=== PATIENT | male | born 1960 | race Caucasian/White ===

== ENCOUNTER 2019-02-16 09:51 | Day surgery (SDC) | payer OTHER ==
[~2019-02-16] VITALS: Ht 177.8 cm; Wt 95.2 kg
[~2019-02-16 09:51] MED LIST: ADVIL200 MG PO; ALLER-TEC10 MG PO; ASCOMP WITH CO1 EACH PO; LEVOTHYROXINE125 MCG PO
--- NOTE | 2019-02-16 11:04 | NUR ---
02/16/19 1104 Sheets,Genie 1100 PT ARRIVED TO PACU ON 3L VIA MASK. VSS AND PT DENIES NAUSEA AND PAIN. COLIN OF CARE DISCUSSED AND PT BACK TO SLEEP, RESP EVEN AND UNLABORED. O2 REMOVED.
--- NOTE | 2019-02-16 15:07 | NUR ---
PT HAS PREVIOUS SCOPES, SEEMED RELAXED. JUAN IN SUPPORT. GAVE ENCOURAGEMENT AND WILL FOLLOW NEEDED
--- NOTE | 2019-02-16 17:19 | OR ---
[facility] [address] [place], [place] [address] Signed DATE OF OPERATION: 02/16/2019 SURGEON: Dee Singh MD PREOPERATIVE DIAGNOSIS: Colon screening. POSTOPERATIVE DIAGNOSIS: Scattered diverticula. PROCEDURE: Total colonoscopy to cecum. ANESTHESIA: Intravenous sedation, fentanyl 100 mcg, Versed 6 mg. INDICATION: This 58-year-old white man is a patient of Eugenio Lanza and underwent colonoscopy 10 years ago, which was normal. He is asymptomatic and has no family history of colon cancer. He is admitted to undergo screening colonoscopy. He understands the risks of bleeding, infection, perforation. FINDINGS: The prep was excellent. Complete colonoscopy was undertaken to the cecum without question. He had no sign of polyps, but did have scattered diverticula throughout the colon. DESCRIPTION OF PROCEDURE: The patient was brought to the endoscopy suite and placed in lateral decubitus position, given intravenous sedation to the point of slurred speech and nystagmus. Digital rectal examination was normal. An Olympus video colonoscope was passed in the rectum and manipulated throughout the colon noting several small diverticula throughout the way. Ultimately, the cecum was fully intubated. The ileocecal valve and appendiceal orifice were normal. The scope was withdrawn from that point and examination was undertaken showing no sign of polyps or colitis, only scattered diverticula. Retroflexed view of the rectum was normal except for some internal hemorrhoidal change. The scope was removed. The patient was taken to recovery room in good condition. Electronically Signed By: DEE SINGH MD 02/16/19 1719 PATIENT NAME: MAKAYLA TRINH OPERATIVE REPORT DATE OF : 58 REPORT #: [id number] PHYSICIAN: DEE SINGH MD PCP: EUGENIO LANZA REPORT IS CONFIDENTIAL AND NOT TO BE RELEASED WITHOUT AUTHORIZATION [address] [place], [place] [address] Signed CONCLUDING DIAGNOSIS: Diverticula, minimal. PLAN: Recommend repeat colonoscopy in 10 years sooner if clinically indicated. Recommend high-fiber diet as well. MD STEVE Murillo/KAMILA /[id number] cc: DIXON Saab Copies: EUGENIO LANZA ~ Electronically Signed By: DEE SINGH MD 02/16/19 1719 PATIENT NAME: MAKAYLA TRINH OPERATIVE REPORT DATE OF : 58 REPORT #: [id number] PHYSICIAN: DEE SINGH MD PCP: EUGENIO LANZA REPORT IS CONFIDENTIAL AND NOT TO BE RELEASED WITHOUT AUTHORIZATION
== END 2019-02-16 11:30 | disposition home or self-care (01) ==
LOC: OPS 09:51 → DS 11:00 → OPS 11:30
PROVIDERS: Surgery
PROC: 0DJD8ZZ Inspection of Lower Intestinal Tract, Via Natural or Artificial Opening Endoscopic (ICD-10-PCS; principal; 2019-02-16 11:00)
DX: Z12.11 Encounter for screening for malignant neoplasm of colon (principal); K57.30 Diverticulosis of large intestine without perforation or abscess without bleeding; K64.8 Other hemorrhoids; E89.0 Postprocedural hypothyroidism; E66.9 Obesity, unspecified; Z88.5 Allergy status to narcotic agent; Z98.890 Other specified postprocedural states; Z85.850 Personal history of malignant neoplasm of thyroid; Z68.31 Body mass index [BMI] 31.0-31.9, adult
CPT/HCPCS: 99153; G0500; J2250; J3010; J7120

== ENCOUNTER 2024-08-28 07:20 | Day surgery (SDC) | payer OTHER ==
[2024-08-23 10:07] VITALS: BP 135/96
[~2024-08-28] VITALS: Ht 177.8 cm; Wt 106.8 kg
[~2024-08-28 07:20] MED LIST changes: +CEFAZOLIN SODIUM 2 GM/20 ML SYR IV SCH; +DEXAMETHASONE SOD PHOS 4 MG/ML VIAL ONE; +FAMOTIDINE 20 MG/ 2 ML VIAL ONE; +HEParin SOD (PORCINE) 5,000 UNIT/ML SDV SUB-Q SCH; +IBLOOD GLUCOSE TEST STRIP 1 EA TEST VI PRN; +KETOROLAC TROMETHAMINE 30 MG/ML VIAL ONE; +LACTATED RINGER'S 1,000 ML IV ONE; +LACTATED RINGER'S 1,000 ML IV SCH; -LEVOTHYROXINE125 MCG PO; +LIDOCAINE HCL 1% 5 ML SDV INJ ONE; +LIDOCAINE HCL 4% 5 ML AMP ONE; +METOCLOPRAMIDE HCL 10 MG/2 ML SDV IV PRN; +METOCLOPRAMIDE HCL 10 MG/2 ML SDV ONE; +MIDAZOLAM HCL 2 MG/2 ML VIAL ONE; +MORPHINE SULFATE 10 MG/ML VIAL IV PRN; +NALOXONE HCL 0.4 MG SYR IV PRN; +PROCHLORPERAZINE EDISYLATE 10 MG/2 ML VIAL IV PRN; +ROCURONIUM BROMIDE 50 MG/5 ML SYR ONE; +SUCCINYLCHOLINE IN 0.9% NACL 200 MG/10 ML SYRINGE ONE; +SUGAMMADEX SODIUM 200 MG/2 ML ML ONE; +SYNTHROID150 MCG PO; +VERELAN PM100 MG PO; +droPERidol 5 MG/2 ML VIAL IV PRN; +fentaNYL citrate 100 MCG/2 ML VIAL ONE; +fentaNYL citrate 50 MCG/ML SDV IV PRN; +ondansetron HCL 4 MG/2 ML VIAL IV PRN; +ondansetron HCL 4 MG/2 ML VIAL ONE; +propofoL 200 MG/20 ML VIAL ONE
[2024-08-28 07:36] VITALS: BP 136/92
[2024-08-28] MEDS ORDERED: LABETALOL HCL 20 MG/4 ML VIAL ONE (10:36)
[2024-08-28] MEDS ORDERED: IBUPROFEN600 MG PO (10:50)
[2024-08-28] MEDS ORDERED: OXYCODON-ACETA1 EAC2 PO (10:51)
[2024-08-28] MEDS ORDERED: ACETAMINOPHEN500 MG PO (10:51)
--- NOTE | 2024-08-28 10:54 | NUR ---
08/28/24 1054 Reyna Gifford 1030 PT ARRIVED IN PACU NON RESPONSIVE TO NOXIOUS STIMULI WITH OPA IN PLACE. CHIN LIFT HELD BY PATROLLER ON ARRIVAL. 1031 PT REACTIVE. OPA REMOVED. 1035 BP ELEVATED. ANESTHESIA AWARE. 1036 LABETOLOL 10MG GIVEN IV BY PATROLLER. 1040 BP DECREASED TO 137/83. 1054 DR AT BEDSIDE. ALL QUESTIONS ANSWERED.
[2024-08-28] MEDS ORDERED: NALOXONE HCL 0.4 MG SYR IV PRN (11:00)
[2024-08-28] MEDS ORDERED: LACTATED RINGER'S 1,000 ML IV SCH (11:00)
[2024-08-28] MEDS ORDERED: ACETAMINOPHEN 500 MG TAB PO PRN (11:00)
[2024-08-28] MEDS ORDERED: OXYCODONE/APAP 7.5/325 TAB PO PRN (11:00)
[2024-08-28] MEDS ORDERED: IBUPROFEN 600 MG TAB PO PRN (11:00)
[2024-08-28 11:07] VITALS: BP 141/91
--- NOTE | 2024-08-28 11:19 | NUR ---
1105 PT ARRIVED TO DAY SURGERY RM TX FROM PACU VIA STREACHER. PT AWAKE AND ORIENTED. PT HAS WATER AND IS SIPPING ON ICE WATER. PT REPORTS TOLERABLE 2/10 PAIN, AND NO NAUSEA. VITALS TAKEN AND IV ASSESSED. PT IN ROOM. PT TAKING PRESCRIPTION TO PHARMACY WITH PT CONSENT TO DO SO. PT SITTING UPRIGHT IN BED SIPPING ON WATER AND EATING JELLO. PT HAS CALL LIGHT WITHIN REACH.
[2024-08-28 12:10] VITALS: BP 135/90
--- NOTE | 2024-08-28 12:19 | NUR ---
1210 HOURLY ROUNDING DONE WITH PT. PT REPORTS FLUCTUATING 3-5/10 PAIN. PT REQUESTING PAIN MEDICATION BEFORE GETTING UP TO USE THE BATHROOM SOON. PAIN MEDICINE GIVEN PER EMAR. PT REPORTS NO NAUSEA AT THIS TIME. VITALS TAKEN. IV ASSESSED. PT IN ROOM. REFILLED PT WATER CUP WITH WATER AND ICE. PT HAS FINISHED JELLO SNACK. BED LOW AND LOCKED, CALL LIGHT WITHIN REACH. PT REPORTS NO URGE TO URINATE YET, PT STATES HE WILL USE CALL LIGHT WHEN HE FEELS THE URGE TO URINATE.
--- NOTE | 2024-08-28 12:50 | NUR ---
1230 PT USED CALL LIGHT TO ALERT RN THAT PT NEEDS TO URINATE. PT ABLE TO AMBULATE TO BATHROOM WITH STEADY GAIT. PT URINATED 300 MLS OF CLEAR YELLOW URINE. PT AMBULATED BACK TO BED. 1245 IV REMOVED FOR PT TO GET DRESSED. PT GETTING DRESSED WITH 'S ASSISTANCE. CALL LIGHT WITHIN REACH.
--- NOTE | 2024-08-28 13:17 | NUR ---
1255 DISCHARGE INFORMATION GONE OVER WITH PT AND . NO QUESTIONS AT THIS TIME. INSTRUCTED PT HOW TO STRIP AND CLEAN AND PUT LEANN DRAIN TO SUCTION. PT HAS NO QUESTIONS AT THIS TIME. PT HAS TOLERABLE 3/10 PAIN. PT REPORTS NO NAUSEA AT THIS TIME. 1302 PT DISCHARGED FROM DAY SURGERY VIA WHEELCHAIR TO THE FRONT OF THE HOSPITAL TO PT'S 'S CAR.
[2024-08-28] MEDS ORDERED: SEVOFLURANE 250 ML BTL INH ONE (15:03)
--- NOTE | 2024-08-28 17:24 | OR ---
[facility] [address] [place], [place] [address] Signed DATE OF OPERATION: 08/28/2024 SURGEON: Dee Singh MD PREOPERATIVE DIAGNOSES: 1. Recurrent umbilical incisional hernia. 2. Incisional hernia in epigastric area. POSTOPERATIVE DIAGNOSES: 1. Epigastric incisional hernia defect 4 cm. 2. Umbilical large lipoma. No evidence of fascial defect or hernia of any sort. PROCEDURES: 1. Repair of epigastric 4 cm incisional hernia with implantation of Prolene mesh in an underlay technique. 2. Excision of 8 cm lipomatous mass at the umbilicus with placement of drain. ANESTHESIA: General endotracheal; Dee Mackenzie CRNA and local 20 mL of 0.25% Marcaine with epinephrine. INDICATIONS FOR THE PROCEDURE: This 64-year-old white man is well known to me from the past. He is a patient of DIXON Saab. He underwent Hill posterior gastropexy by me in 2000. He remains free of reflux symptoms 24 years later. He did develop by incisional hernia with incarceration at the umbilicus in 2012, which required operation including implantation of Prolene mesh in an underlay technique. The patient has gained a fair amount of weight since that time and has noted this is a bulky mass at the umbilicus, which is suggestive of recurrent incisional umbilical hernia. He additionally has a hernia that is reducible in the epigastric area. He is admitted at this time to undergo repair of the hernia and other indicated procedures depending on findings. He understands the risk of bleeding, infection, recurrence and so forth. FINDINGS: At the umbilicus, there was no hernia whatsoever. The previous repair was well intact. Instead, there was a lipomatous mass measuring 8 cm in maximum dimension. It was excised completely. Given the empty space that resulted, a drain was placed. In the epigastric area, there clearly was hernia 4 cm in maximum dimension oriented transversely. This was repaired with implantation of Prolene mesh in the properitoneal Electronically Signed By: DEE SINGH MD 08/28/24 1724 PATIENT NAME: MAKAYLA TRINH OPERATIVE REPORT DATE OF : 58 REPORT #: [id number] PHYSICIAN: DEE SINGH MD PCP: EUGENIO THAPA REPORT IS CONFIDENTIAL AND NOT TO BE RELEASED WITHOUT AUTHORIZATION [facility] [address] [place], [place] [address] Signed space with transverse reapproximation of the fascial edges. DESCRIPTION OF PROCEDURE: The patient was brought to the operating room, given a general endotracheal anesthetic. Preoperative antibiotic Ancef was given. Heparin was administered subcutaneously preoperatively and sequential compression device stockings were used. The abdomen was clipped and prepared with a chlorhexidine solution and draped sterilely. Attention was turned to the umbilicus. Palpation of the area revealed a bulky mass, which was presumed to be hernia. An incision was made with #15 blade in the previous umbilical area and dissection carried through the subcutaneous tissue, where a lipomatous-appearing mass was noted. Initially, this was thought to be herniated properitoneal fat or omentum. Further dissection down to the fascia showed that there was no fascial defect whatsoever. Dissection was taken inferiorly and superiorly, and ultimately to the right lateral area, where again there was no sign of fascial defect and no hernia. Lipomatous mass was excised completely and represented a lipoma after all. The lipomatous mass was 8 cm in maximum dimension. Irrigation was undertaken in the area and further palpation affirmed no sign of fascial defect elsewhere. The wound was left in situ and packed with gauze. Attention was turned to the epigastric area. The area where a likely epigastric hernia was identified previously was incised with the #15 blade. Dissection was carried through the subcutaneous tissue with blunt and electrocautery dissection. There was found to be herniated properitoneal fat and the fascial defect ultimately measured 4 cm in length. This was dissected free circumferentially, more fully identifying the fascial defect. Using blunt dissection, the properitoneal space was developed circumferentially. The confluence of the costal margins was identified superiorly and palpation appropriately spaced inferior along the incision showed no other fascial defect. Wide properitoneal dissection was undertaken with blunt and electrocautery dissection. A segment of ProGrip Prolene mesh was secured in an underlay technique in the properitoneal space covering the defect fully. It was secured with 0-Prolene sutures. The fascia was reapproximated with interrupted 0-Prolene suture in a horizontal mattress configuration using Prolene pledgets. A 10 mL of 0.25% Marcaine with epinephrine was injected in each operative site. Both wounds were closed with interrupted 2-0 Vicryl in layers and a running subcuticular 3-0 Vicryl for the skin. Steri-Strips were applied and Acticoat dressings were applied. Not mentioned previously was placement of a right lower quadrant stab incision allowing for a drain in the umbilical area as the area of dissection was relatively large and the space remaining was somewhat significant. This drain was attached to bulb suction after being secured with nylon suture. The patient was ultimately extubated and transferred to the recovery room in good condition, having suffered no complications. Sponge, needle, and instrument counts were reported correct x3. Electronically Signed By: DEE SINGH MD 08/28/24 1724 PATIENT NAME: MAKAYLA TRINH OPERATIVE REPORT DATE OF : 58 REPORT #: [id number] PHYSICIAN: DEE SINGH MD PCP: EUGENIO THAPA REPORT IS CONFIDENTIAL AND NOT TO BE RELEASED WITHOUT AUTHORIZATION [address] [address] Signed MD STEVE Murillo/KANAL /[id number] cc: DIXON Saab Copies: EUGENIO THAPA ~ Electronically Signed By: DEE SINGH MD 08/28/24 1724 PATIENT NAME: MAKAYLA TRINH OPERATIVE REPORT DATE OF : 58 REPORT #: [id number] PHYSICIAN: DEE SINGH MD PCP: EUGENIO THAPA REPORT IS CONFIDENTIAL AND NOT TO BE RELEASED WITHOUT AUTHORIZATION
--- NOTE | 2024-08-31 10:13 | PATH ---
[facility] [address] [place], [place] [address] Signed SPECIMEN(S): A UMBILICAL LIPOMA SPECIMEN SOURCE: A. UMBILICAL LIPOMA CLINICAL HISTORY: Recurrent incisional hernias at umbilicus and epigastric areas FINAL PATHOLOGIC DIAGNOSIS: Soft tissue from umbilical area: - Benign adipose tissue consistent with lipoma. - No malignancy identified. [facility] MICROSCOPIC EXAMINATION: Histologic sections of all submitted blocks are examined by light microscopy. These findings, together with the gross examination, support the pathologic diagnosis. GROSS DESCRIPTION: The specimen, labeled and designated "Andrews, G., umbilical lipoma per requisition," is received in formalin and consists of a 8.7 x 7.4 x 2.4 cm portion reveal lobulated fibroadipose tissue. The outer surface is inked blue and the specimen is serially sectioned revealing a yellow homogenous cut surface. Epilepsy Physician sections are submitted in cassette A1. AA (under the direct supervision of a pathologist) The Gross Description was prepared using a voice recognition system. The report was reviewed for accuracy; however, sound-alike word errors, addition and/or deletions may occur. If there is any question about this report, please contact Client Services. ADDITIONAL NOTES: Immunohistochemical and/or in situ hybridization studies if performed in this case included appropriate positive controls that reacted as expected. This test was developed and its performance characteristics determined by [facility]. It has not been cleared or approved by the U.S. Food and Drug Administration. The FDA has determined that such clearance or approval is not necessary. This test is used for clinical purposes. It should not be regarded as investigational or for research. [facility] is certified under the PATIENT NAME: MAKAYLA TRINH PATHOLOGY DATE OF : 58 REPORT #: [id number] PHYSICIAN: NIKITA HAMPTON PCP: EUGENIO THAPA REPORT IS CONFIDENTIAL AND NOT TO BE RELEASED WITHOUT AUTHORIZATION [facility] [address] [place], [place] [address], [place] [address] Signed Clinical Laboratory Improvement Amendments of 1988 (CLIA) as qualified to perform high complexity clinical laboratory testing. PERFORMING LABORATORY: Technical component was performed by [facility], [address] [place] [id number] (CLIA# [id number]). Professional interpretation was performed by [facility], [address] [place] [id number] (CLIA#: [id number]). Diagnostician: Jon Michael MD Pathologist Electronically Signed 08/31/2024 Copies: ~ PATIENT NAME: MAKAYLA TRINH PATHOLOGY DATE OF : 58 REPORT #: [id number] PHYSICIAN: NIKITA HAMPTON PCP: EUGENIO THAPA REPORT IS CONFIDENTIAL AND NOT TO BE RELEASED WITHOUT AUTHORIZATION
== END 2024-08-28 13:02 | disposition home or self-care (01) ==
LOC: DS 07:20
PROVIDERS: ATTEND Surgery
PROC: 0WUF0JZ Supplement Abdominal Wall with Synthetic Substitute, Open Approach (ICD-10-PCS; principal; 2024-08-28 08:30)
PROC: 0JB80ZZ Excision of Abdomen Subcutaneous Tissue and Fascia, Open Approach (ICD-10-PCS; 2024-08-28 08:30)
DX: K43.2 Incisional hernia without obstruction or gangrene (principal); Z90.89 Acquired absence of other organs; Z98.890 Other specified postprocedural states; Z88.5 Allergy status to narcotic agent; Z88.8 Allergy status to other drugs, medicaments and biological substances; Z79.899 Other long term (current) drug therapy
CPT/HCPCS: 00750; C1781; J0330; J0690; J1100; J1644; J1885; J2250; J2405; J2704; J2765; J3010; J3490; J7121